=== PATIENT | female | born 1975 | race American Indian/Alaskan Native ===

== ENCOUNTER 2017-11-30 13:20 | Outpatient (CLI) | payer OTHER ==
--- NOTE | 2017-11-30 14:12 | Cat Scan Report ---
CT CHEST WITHOUT CONTRAST: HISTORY: Chest pain, cough. COMPARISON: none. TECHNIQUE: Helical CT in 1.25mm intervals without IV contrast. Sagittal and coronal reformatted images. FINDINGS: Thyroid gland: Normal. Tracheobronchial tree: Normal. Esophagus: Normal. Heart: Normal. Pericardium: Normal. Mediastinum: Normal. Lung Srivastava: Normal. Pleural Spaces: Normal. Musculoskeletal: Normal. IMPRESSION: Unremarkable CT chest without contrast.
== END 2017-11-30 13:21 | disposition home or self-care (01) ==
LOC: CT 13:20
PROVIDERS: ATTEND Specialist
DX: R07.9 Chest pain, unspecified (principal); R05 Cough
CPT/HCPCS: 71250